=== PATIENT | female | born 1975 | race African-American/Black ===

== ENCOUNTER 2016-11-05 17:53 | Emergency (ER) | payer MEDICARE, MEDICAID ==
[~2016-11-05] VITALS: Ht 172.7 cm; Wt 118.0 kg
[~2016-11-05 17:53] MED LIST: ASPIRIN PO; BUPR150T9 PO; DEPAKOTE PO; GLIPIZIDE PO; IRON PO; LEVOTHYROXINE PO; LISINOPRIL PO; METFORMIN PO; METOPROLOL PO; QUET400T11 PO; QUET50TA21 PO; SEROQUEL; SIMV10TA6 PO; VITAMIN C PO; WELLBUTRIN; ZANTAC PO
[2016-11-05] MEDS ORDERED: IBUPROFEN 600MG TABLET PO ONE (20:30)
[2016-11-05 20:52] VITALS: BP 101/61
== END 2016-11-05 21:04 | disposition home or self-care (01) ==
LOC: ER 19:21
DX: S13.9XXA Sprain of joints and ligaments of unspecified parts of neck, initial encounter (principal); Z76.0 Encounter for issue of repeat prescription; V49.88XA Car occupant (driver) (passenger) injured in other specified transport accidents, initial encounter; Y93.89 Activity, other specified; Y92.488 Other paved roadways as the place of occurrence of the external cause; F31.9 Bipolar disorder, unspecified; E78.00 Pure hypercholesterolemia, unspecified; I10 Essential (primary) hypertension; F20.9 Schizophrenia, unspecified; E11.9 Type 2 diabetes mellitus without complications
CPT/HCPCS: 99283

== ENCOUNTER 2016-12-12 23:23 | Emergency (ER) | payer MEDICARE, MEDICAID ==
[~2016-12-12] VITALS: Ht 185.4 cm; Wt 113.0 kg
[2016-12-13] MEDS ORDERED: QUET200T PO (01:07)
[2016-12-13] MEDS ORDERED: HALO5TAB PO (01:07)
[2016-12-13] MEDS ORDERED: DIVA-18 PO (01:07)
[2016-12-13] MEDS ORDERED: METF500T4 PO (01:07)
[2016-12-13 01:20] LABS: BASOPHILS % 0.3 % (0.0-2.0); HEMATOCRIT. 30.7 % (36.0-48.0); LYMPHOCYTES % 9.5 % (20.0-50.0); MEAN CORPUSCULAR HEMOGLOBIN 27.4 pg (28.0-32.0); MEAN CORPUSCULAR HGB CONC 32.7 g/dL (31.0-37.0); MEAN CORPUSCULAR VOLUME 83.7 fL (81.0-99.0); MEAN PLATELET VOLUME 7.2 fl (7.4-10.4); MONOCYTES % 8.4 % (2.0-8.0); NEUTROPHILS % 81.8 % (40.0-76.0); PLATELET 426 x1000/uL (130-400); RED BLOOD CELL COUNT 3.66 mill/uL (4.2-5.4); RED CELL DISTRIBUTION WIDTH 18.6 % (11.6-14.6); WHITE BLOOD COUNT 19.6 x1000/uL (4.5-11.0)
[2016-12-13 01:27] LABS: CHLORIDE 104 mEq/L (98-107); INDEX HEMOLYSI 1 (1-3); INDEX ICTERIC 1 (1-4); INDEX LIPEMIC 1 (1-3)
[2016-12-13 01:36] LABS: ALANINE AMINOTRANSFERASE 28 IU/L (13-61); ALBUMIN 3.4 g/dL (3.4-5.0); ANION GAP 15; CALCIUM 8.6 mg/dL (8.5-10.1); CARBON DIOXIDE 22 mEq/L (21-32); ETHANOL BLOOD < 10 mg/dL; UREA NITROGEN BLOOD 7 mg/dL (7-21); eGFR > 60 mL/min (>60)
[2016-12-13 01:56] LABS: CLARITY URINE TURBID (CLEAR); COLOR URINE DARK YELLOW (YELLOW); GLUCOSE URINE NEGATIVE (NEGATIVE); KETONES URINE TRACE (NEGATIVE); LEUKOCYTE ESTERASE URINE 3+ (NEGATIVE); NITRITE URINE NEGATIVE (NEGATIVE); OCCULT BLOOD URINE 1+ (NEGATIVE); PH URINE 5.5 (4.5-8.0); PROTEIN URINE 1+ (NEGATIVE); SPECIFIC GRAVITY URINE 1.018 (1.005-1.030)
[2016-12-13 02:21] LABS: SQUAMOUS EPITHELIAL CELL URINE 2+ /lpf (RARE/1+)
[2016-12-13 02:22] LABS: RBC URINE 15-25 /hpf (0-2); WBC URINE TNTC /hpf (0-2)
[2016-12-13 02:24] LABS: BACTERIA URINE 3+; TRICHOMONAS URINE 1+
[2016-12-13] MEDS ORDERED: LORAZEPAM 2MG/ML CPJ IM ONE (02:30)
[2016-12-13] MEDS ORDERED: HALOPERIDOL LACTATE 5MG/ML VIAL IM ONE (02:30)
[2016-12-13] MEDS ORDERED: DIPHENHYDRAMINE 50MG/ML VIAL IM ONE (02:30)
[2016-12-13 02:44] LABS: *BARBITURATES SCREEN URINE NEGATIVE (NEGATIVE); *BENZODIAZEPINES SCREEN URINE NEGATIVE (NEGATIVE); *COCAINE SCREEN URINE NEGATIVE (NEGATIVE); CANNABINOID URINE SCREEN NEGATIVE (NEGATIVE); METHADONE URINE SCREEN NEGATIVE (NEGATIVE); OPIATES URINE SCREEN NEGATIVE (NEGATIVE); PHENCYCLIDINE URINE SCREEN NEGATIVE (NEGATIVE)
[2016-12-13 02:57] LABS: ECSTASY MDMA SCREEN URINE CONF.TEST INDICATED (NEGATIVE)
[2016-12-13 02:59] LABS: *AMPHETAMINES SCREEN URINE NEGATIVE (NEGATIVE)
[2016-12-13] MEDS ORDERED: CIPROFLOXACIN HCL 250MG TABLET PO ONE (03:00)
[2016-12-13] MEDS ORDERED: CEFTRIAXONE SODIUM 1 G/VIAL IM ONE (05:00)
[2016-12-13 20:15] VITALS: BP 101/56
== END 2016-12-13 20:20 | disposition home or self-care (01) ==
LOC: ER 23:24
DX: M79.604 Pain in right leg (principal); N39.0 Urinary tract infection, site not specified; F17.200 Nicotine dependence, unspecified, uncomplicated; E11.9 Type 2 diabetes mellitus without complications; F20.9 Schizophrenia, unspecified; Z91.14 Patient's other noncompliance with medication regimen
CPT/HCPCS: 36415; 73610; 80053; 80305; 81001; 82962; 85025; 93005; 96372; 99285; G0482; J0696; J1200; J1630; J2060; J7030

== ENCOUNTER 2018-02-20 18:05 | Emergency (ER) | payer MEDICARE, MEDICAID ==
[~2018-02-20] VITALS: Ht 172.7 cm; Wt 68.0 kg
[~2018-02-20 18:05] MED LIST changes: -DEPAKOTE PO; +DIVA-18 PO; +HALO5TAB PO; +METF500T6 PO; +QUET200T PO; -QUET50TA21 PO; -SEROQUEL; -WELLBUTRIN
[2018-02-20 18:33] VITALS: BP 93/56
[2018-02-20] MEDS ORDERED: SODIUM CHLORIDE 0.9% 1,000 ML IV ONE (18:52)
== END 2018-02-20 19:47 | disposition left against medical advice (07) ==
LOC: ER 18:58
DX: N93.8 Other specified abnormal uterine and vaginal bleeding (principal); E11.9 Type 2 diabetes mellitus without complications; F20.9 Schizophrenia, unspecified; F17.200 Nicotine dependence, unspecified, uncomplicated; Z79.82 Long term (current) use of aspirin; Z79.84 Long term (current) use of oral hypoglycemic drugs
CPT/HCPCS: 99283; J7030

== ENCOUNTER 2021-10-21 23:22 | Emergency (ER) | payer MEDICARE, MEDICAID ==
[~2021-10-21] VITALS: Ht 185.4 cm; Wt 102.0 kg
[~2021-10-21 23:22] MED LIST changes: +METF-414 PO; -METF500T6 PO; -QUET400T11 PO; +QUET400T12 PO; -SIMV10TA6 PO; +SIMV10TA97 PO
[2021-10-22 00:16] LABS: CHLORIDE 108 mEq/L (98-107)
[2021-10-22 00:26] LABS: BASOPHILS % 0.6 % (0.0-2.0); EOSINOPHILS % 0.8 % (0.0-5.0); HEMOGLOBIN. 13.1 g/dL (12.0-16.0); LYMPHOCYTES % 36.4 % (20.0-50.0); MEAN CORPUSCULAR VOLUME 87.4 fL (81.0-99.0); MEAN PLATELET VOLUME 7.6 fl (7.4-10.4); MONOCYTES % 8.7 % (2.0-8.0); NEUTROPHILS % 53.5 % (40.0-76.0); PLATELET 356 x1000/uL (130-400); RED BLOOD CELL COUNT 4.69 mill/uL (4.2-5.4); RED CELL DISTRIBUTION WIDTH 13.8 % (11.6-14.6)
[2021-10-22 01:37] VITALS: BP 135/66
== END 2021-10-22 01:38 | disposition home or self-care (01) ==
LOC: ER 23:22
DX: R10.30 Lower abdominal pain, unspecified (principal); E11.9 Type 2 diabetes mellitus without complications; F20.9 Schizophrenia, unspecified; F79 Unspecified intellectual disabilities; Z79.84 Long term (current) use of oral hypoglycemic drugs
CPT/HCPCS: 36415; 71045; 80053; 85025; 93005; 99285

== ENCOUNTER 2022-07-13 05:53 | Emergency (ER) | payer MEDICARE, MEDICAID ==
[~2022-07-13] VITALS: Ht 182.9 cm; Wt 106.6 kg
[~2022-07-13 05:53] MED LIST changes: +BUPR-114 PO; -BUPR150T9 PO
[2022-07-13] MEDS ORDERED: CEFTRIAXONE SODIUM 500 MG/VIAL IM ONE ×2 (07:00→08:30)
[2022-07-13 08:17] LABS: CLARITY URINE CLEAR (CLEAR); COLOR URINE YELLOW (YELLOW); KETONES URINE NEGATIVE (NEGATIVE); LEUKOCYTE ESTERASE URINE NEGATIVE (NEGATIVE); NITRITE URINE NEGATIVE (NEGATIVE); OCCULT BLOOD URINE NEGATIVE (NEGATIVE); PH URINE 5.5 (4.5-8.0); PROTEIN URINE NEGATIVE (NEGATIVE); SPECIFIC GRAVITY URINE 1.012 (1.005-1.030)
[2022-07-13] MEDS ORDERED: DOXY100C5 MT (08:47)
[2022-07-13 09:09] VITALS: BP 137/83
== END 2022-07-13 09:11 | disposition home or self-care (01) ==
LOC: ER 05:53
DX: Z20.2 Contact with and (suspected) exposure to infections with a predominantly sexual mode of transmission (principal); D64.9 Anemia, unspecified; E11.9 Type 2 diabetes mellitus without complications; F20.9 Schizophrenia, unspecified; F33.9 Major depressive disorder, recurrent, unspecified; R62.50 Unspecified lack of expected normal physiological development in childhood
CPT/HCPCS: 81003; 81025; 96372; 99283; J0696